=== PATIENT | female | born 2000 | race Two or more races ===

== ENCOUNTER 2019-04-06 09:18 | Emergency (ER) | payer SELFPAY ==
[~2019-04-06] VITALS: Ht 170.2 cm; Wt 99.8 kg
[2019-04-06 09:27] VITALS: BP 134/83
== END 2019-04-06 11:02 | disposition home or self-care (01) ==
LOC: ER 09:25
DX: S90.122A Contusion of left lesser toe(s) without damage to nail, initial encounter (principal); W22.8XXA Striking against or struck by other objects, initial encounter; Y93.89 Activity, other specified; Y99.8 Other external cause status; Y92.89 Other specified places as the place of occurrence of the external cause
CPT/HCPCS: 73620